=== PATIENT | male | born 1940 | race Hispanic/Latino ===

== ENCOUNTER 2022-12-10 09:53 | Inpatient (IN) | payer MEDICARE ==
[~2022-12-10] VITALS: Ht 167.6 cm; Wt 34.0 kg
[2022-12-10] MEDS ORDERED: ASPIRIN 81MG CHEW TAB PO ONE (10:00)
[2022-12-10 10:14] LABS: ABG BASE EXCESS 1.2 mmol/L (-2.0-3.0); ABG OXYGEN SATURATION 89.7 % (95.0-99.0); ABG PCO2 42 mmHg (35-48)
[2022-12-10 10:17] LABS: BASOPHILS % (AUTO) 0.1 % (0.0-5.0); EOSINOPHILS % (AUTO) 0.2 % (0.0-8.0); HEMATOCRIT 38.1 % (42-54); LYMPHOCYTES % (AUTO) 8.3 % (21.0-51.0); MEAN CORPUSCULAR HEMOGLOBIN 29.9 pg (27.0-33.0); MEAN CORPUSCULAR VOLUME 96.7 fL (79-99); MONOCYTES % (AUTO) 5.7 % (3.0-13.0); NEUTROPHILS % (AUTO) 85.3 % (40.0-77.0); PLATELET COUNT (AUTO) 483 K/uL (130-400); RED BLOOD CELL COUNT(AUTO) 3.94 MIL/uL (4.50-6.20); RED CELL DISTRIBUTION WIDTH 13.1 % (11.0-15.5); WHITE BLOOD COUNT (AUTO) 17.5 K/uL (4.8-10.8)
[2022-12-10] MEDS: ZOSYN 3.375GM +NS 50ML IV SCH (10:23)
[2022-12-10 10:41] LABS: ALBUMIN 1.9 g/dL (3.5-5.0); ASPARTATE AMINOTRANSFERASE 18 U/L (10-37); CARBON DIOXIDE 32 mmol/L (21-32); CHLORIDE 100 mmol/L (101-111); CREATININE 0.6 mg/dL (0.5-1.5); GLOMERULAR FILTR. RATE CALC 137 mL/min (>60); GLUCOSE,RANDOM 93 mg/dL (70-105); POTASSIUM 3.8 mmol/L (3.5-5.1); SODIUM SERUM 136 mmol/L (136-145); TOTAL PROTEIN, SERUM 8.1 g/dL (6.0-8.3); UREA NITROGEN, BLOOD 12 mg/dL (7-18)
[2022-12-10 10:45] LABS: B-TYPE NATRIURETIC PEPTIDE 24 pg/mL (0-100)
[2022-12-10 11:01] LABS: ALANINE AMINOTRANSFERASE < 6 U/L (12-78)
[2022-12-10 12:22] LABS: APPEARANCE,URINE CLEAR (CLEAR); BILIRUBIN,URINE NEGATIVE (NEGATIVE); COLOR,URINE YELLOW (YELLOW); GLUCOSE, URINE (UA) NEGATIVE (NEGATIVE); KETONES,URINE 10 mg/dL (NEGATIVE); LEUKOCYTE ESTERASE ,URINE NEGATIVE Leu/uL (NEGATIVE); MUCUS,URINE RARE LPF (None Seen); NITRATE,URINE NEGATIVE (NEGATIVE); OCCULT BLOOD,URINE NEGATIVE (NEGATIVE); PH,URINE 6.5 (5.0-8.0); PROTEIN,URINE 10 mg/dL (NEGATIVE); SQUAMOUS EPITHELIAL CELL,UR RARE /HPF (0-2); UROBILINOGEN,URINE 3 mg/dL (0.2-1.0)
[2022-12-10] MEDS ORDERED: ACETAMINOPHEN 325 MG TAB PO PRN (13:00)
[2022-12-10] MEDS ORDERED: ONDANSETRON 4MG INJ IVP PRN (13:00)
[2022-12-10] MEDS ORDERED: LEVOFLOXACIN 750 MG/D5W 150ML BAG IVPB ONE (14:00)
[2022-12-10] MEDS: CEFTRIAXONE 1G VIAL IVP SCH (14:36)
[2022-12-10] MEDS ORDERED: IOHEXOL-350 50ML VIAL IV ONE (16:11)
[2022-12-10] MEDS ORDERED: DOXYCYCLINE 100MG+NS 250ML 250 ML IV ONE (20:09)
[2022-12-10] MEDS: DOXYCYCLINE 100MG+NS 250ML IV SCH (20:15)
[2022-12-10] MEDS: DEXTROSE 5 % AND 0.9 % NACL 1,000 ML IV SCH (20:15)
[2022-12-10] MEDS ORDERED: DOXYCYCLINE HYCLATE 100 MG TABLET PO SCH (21:00)
[2022-12-11] MEDS ORDERED: ASPI-1190 PO (02:27)
[2022-12-11] MEDS ORDERED: BUDE10.7 IH (02:27)
[2022-12-11] MEDS ORDERED: BENZ-226 PO (02:27)
[2022-12-11 04:10] VITALS: BP 134/64
[2022-12-11 06:26] LABS: BASOPHILS % (AUTO) 0.2 % (0.0-5.0); EOSINOPHILS % (AUTO) 0.5 % (0.0-8.0); HEMATOCRIT 37.3 % (42-54); LYMPHOCYTES % (AUTO) 12.1 % (21.0-51.0); MEAN CORPUSCULAR HEMOGLOBIN 29.8 pg (27.0-33.0); MEAN CORPUSCULAR HGB CONC 30.6 g/dL (32.0-36.0); MEAN CORPUSCULAR VOLUME 97.4 fL (79-99); MONOCYTES % (AUTO) 8.5 % (3.0-13.0); NEUTROPHILS % (AUTO) 78.2 % (40.0-77.0); PLATELET COUNT (AUTO) 414 K/uL (130-400); RED BLOOD CELL COUNT(AUTO) 3.83 MIL/uL (4.50-6.20); WHITE BLOOD COUNT (AUTO) 11.6 K/uL (4.8-10.8)
[2022-12-11 06:35] LABS: CREATININE 0.6 mg/dL (0.5-1.5); MAGNESIUM 1.6 mg/dL (1.80-2.40); POTASSIUM 3.8 mmol/L (3.5-5.1)
[2022-12-11 08:00] VITALS: BP 120/68
[2022-12-11] MEDS ORDERED: 0.9% NACL 250ML 250 ML ONE (08:32)
[2022-12-11] MEDS: DOXYCYCLINE 100MG+NS 250ML IV SCH ×2 (08:50→20:00)
[2022-12-11] MEDS: ENOXAPARIN SODIUM 30 MG/0.3 ML SQ SCH (08:52)
[2022-12-11] MEDS: ZOSYN 3.375GM +NS 50ML IV SCH (10:56)
[2022-12-11 12:00] VITALS: BP 128/62
[2022-12-11] MEDS: CEFTRIAXONE 1G VIAL IVP SCH (12:59)
[2022-12-11] MEDS: DEXTROSE 5 % AND 0.9 % NACL 1,000 ML IV SCH (15:30)
[2022-12-11 16:00] VITALS: BP 126/61
[2022-12-11 20:15] VITALS: BP 118/61
[2022-12-12] VITALS: BP 108/58
[2022-12-12 03:38] VITALS: BP 128/74
[2022-12-12 08:00] VITALS: BP 120/64
[2022-12-12] MEDS ORDERED: 0.9% NACL 250ML 250 ML ONE (09:06)
[2022-12-12] MEDS: DOXYCYCLINE 100MG+NS 250ML IV SCH ×2 (09:50→21:01)
[2022-12-12] MEDS: ENOXAPARIN SODIUM 30 MG/0.3 ML SQ SCH (09:50)
[2022-12-12] MEDS: ZOSYN 3.375GM +NS 50ML IV SCH (10:00)
[2022-12-12 12:00] VITALS: BP 140/55
[2022-12-12] MEDS: CEFTRIAXONE 1G VIAL IVP SCH (13:02)
[2022-12-12] MEDS: DEXTROSE 5 % AND 0.9 % NACL 1,000 ML IV SCH (13:03)
[2022-12-12 16:00] VITALS: BP 93/66
[2022-12-12 20:00] VITALS: BP 136/68
[2022-12-13] VITALS: BP 144/68
[2022-12-13 04:00] VITALS: BP 148/80
[2022-12-13 06:18] LABS: HEMATOCRIT 38.8 % (42-54); MEAN CORPUSCULAR HEMOGLOBIN 29.4 pg (27.0-33.0); MEAN CORPUSCULAR HGB CONC 30.4 g/dL (32.0-36.0); MEAN CORPUSCULAR VOLUME 96.5 fL (79-99); RED BLOOD CELL COUNT(AUTO) 4.02 MIL/uL (4.50-6.20); RED CELL DISTRIBUTION WIDTH 12.8 % (11.0-15.5); WHITE BLOOD COUNT (AUTO) 6.2 K/uL (4.8-10.8)
[2022-12-13 06:36] LABS: CREATININE 0.6 mg/dL (0.5-1.5); MAGNESIUM 1.5 mg/dL (1.80-2.40)
[2022-12-13 06:39] LABS: POTASSIUM 2.8 mmol/L (3.5-5.1)
[2022-12-13] MEDS ORDERED: KCL 20 MEQ ERTAB PO PRN (07:00)
[2022-12-13 08:00] VITALS: BP 128/61
[2022-12-13] MEDS ORDERED: 0.9% NACL 250ML 250 ML ONE (08:06)
[2022-12-13] MEDS: DOXYCYCLINE 100MG+NS 250ML IV SCH ×2 (08:14→20:20)
[2022-12-13] MEDS: DEXTROSE 5 % AND 0.9 % NACL 1,000 ML IV SCH (08:15)
[2022-12-13] MEDS: ENOXAPARIN SODIUM 30 MG/0.3 ML SQ SCH (08:15)
[2022-12-13] MEDS: ZOSYN 3.375GM +NS 50ML IV SCH (10:05)
[2022-12-13 12:00] VITALS: BP 133/75
[2022-12-13] MEDS: CEFTRIAXONE 1G VIAL IVP SCH (12:52)
[2022-12-13] MEDS: LIDOCAINE HCL-MPF 1% 2ML VIAL IV PRN (12:53)
[2022-12-13] MEDS: POTASSIUM CHLORIDE 20MEQ/100ML 100 ML IV PRN (12:53)
[2022-12-13 16:00] VITALS: BP 135/70
[2022-12-13] MEDS: LACTULOSE 20 GM/30 ML UDCUP PO SCH (17:41)
[2022-12-13] MEDS ORDERED: MAGNESIUM 2GM PREMIX 50ML 50 ML IV PRN (19:00)
[2022-12-13 20:00] VITALS: BP 141/69
[2022-12-14] VITALS: BP 139/73
[2022-12-14] MEDS: LACTULOSE 20 GM/30 ML UDCUP PO SCH ×2 (00:25→06:06)
[2022-12-14] MEDS: LIDOCAINE HCL-MPF 1% 2ML VIAL IV PRN (00:25)
[2022-12-14] MEDS: POTASSIUM CHLORIDE 20MEQ/100ML 100 ML IV PRN (00:25)
[2022-12-14] MEDS: DEXTROSE 5 % AND 0.9 % NACL 1,000 ML IV SCH (03:30)
[2022-12-14 04:00] VITALS: BP 123/67
[2022-12-14 07:10] LABS: POTASSIUM 3.5 mmol/L (3.5-5.1)
[2022-12-14] MEDS: DOXYCYCLINE 100MG+NS 250ML IV SCH (07:40)
[2022-12-14] MEDS ORDERED: 0.9% NACL 250ML 250 ML ONE (07:40)
[2022-12-14 08:00] VITALS: BP 127/62
[2022-12-14] MEDS: ENOXAPARIN SODIUM 30 MG/0.3 ML SQ SCH (09:48)
[2022-12-14] MEDS: ZOSYN 3.375GM +NS 50ML IV SCH (10:52)
[2022-12-14] MEDS: POTASSIUM CHLORIDE 10% ELIXIR 20 MEQ/15 ML UDCUP PO PRN ×2 (10:53→13:43)
[2022-12-14 12:00] VITALS: BP 133/63
[2022-12-14] MEDS: CEFTRIAXONE 1G VIAL IVP SCH (13:43)
== END 2022-12-14 17:00 | DRG 193 ==
LOC: EDH 09:53 → EDSEX 09:53 → OBSVTOIN 12:56 → EDHIP 12:56 → 3AH 12-11 01:53
PROVIDERS: ADMIT Internal Medicine Infectious Disease; ATTEND Internal Medicine Infectious Disease
DX: J18.9 Pneumonia, unspecified organism (principal); E43 Unspecified severe protein-calorie malnutrition; J96.01 Acute respiratory failure with hypoxia; J47.0 Bronchiectasis with acute lower respiratory infection; Z68.1 Body mass index [BMI] 19.9 or less, adult; D64.9 Anemia, unspecified; R53.81 Other malaise; Z20.822 Contact with and (suspected) exposure to COVID-19; E87.6 Hypokalemia; I10 Essential (primary) hypertension; J45.909 Unspecified asthma, uncomplicated
CPT/HCPCS: 36415; 36600; 71045; 71260; 74230; 80048; 80053; 81001; 82803; 83605; 83735; 83880; 84132; 84484; 85025; 85027; 87040; 87635; 87804; 92526; 92610; 92611; 93005; 97039; C9803; G0378; J0696; J1650; J1956; J2543; J3475; J3480; J3490; J7042; J7050; Q9967